=== PATIENT | female | born 1970 | race Caucasian/White ===

== ENCOUNTER 2016-11-13 18:07 | Emergency (ER) | payer SELFPAY ==
--- NOTE | ~2016-11-13 | CR142 ---
[facility] A Service of [facility] RADIOLOGY TEXT RESULTS PATIENT: CLINTON JENKINS LOCATION: CFT[facility] : 66 UNIT #: [id number] AGE: [address]: Richadr Appiah SEX: F ORDER DR: [id number] [place], [place] [address] [id number] MR#: [id number] #: [id number] NAME: CLINTON JENKINS : 1970 SEX: F STUDY DATE/TIME: 11/13/2016 18:50 UNIT: [facility] ROOM: STUDY DESCRIPTION: CR Hand Min 3 Views Rt Attending Physician: Richard Appiah P.A.-C. Ordering Physician: Max Harrison M.D. Primary Care Physician: No Primary Care Physician MEDICAL IMAGING REPORT This report is preliminary unless electronic signature is present EXAM Right hand, 3 views. HISTORY Right hand pain today after she punched the refrigerator. COMMENTS Three views of the right hand are reviewed. There is no previous. There is a comminuted fracture of the distal fifth metacarpal involving the shaft to the metaphysis with some impaction and apex dorsal angulation. There is soft tissue swelling and I cannot exclude an open fracture. There is no clear intraarticular extension of the fracture lines and no dislocation is appreciated. IMPRESSION 1. There is a comminuted fracture of the distal right fifth metacarpal involving the shaft and metaphysis region. There is apex dorsal angulation and impaction and configuration raises possibility of an open fracture. Please correlate with physical exam findings. No obvious intraarticular extension of fracture line and no dislocation appreciated. Dictated by... Aneta Bello M.D. THIS IS AN ELECTRONICALLY VERIFIED REPORT Aneta Bello M.D. at 11/14/2016 2:26 PM DESTINY/olive TD: 11/14/2016 06:52 JOB #: [id number] [facility] A Service of [facility] RADIOLOGY TEXT RESULTS PATIENT: CLINTON JENKINS LOCATION: [facility] : 66 UNIT #: [id number] AGE: [address]: Richard Appiah PAC SEX: F ORDER DR: MEDICAL IMAGING REPORT Page 1 of 1 COPY
[~2016-11-13 18:07] MED LIST: LORTAB 5/500 TA1 TA1 PO
== END 2016-11-13 20:37 | disposition short-term general hospital (02) ==
LOC: CED 18:07 → CFTX 18:07 → CED 20:24 → CFTX 20:37
DX: S62.306B Unspecified fracture of fifth metacarpal bone, right hand, initial encounter for open fracture (principal); F17.210 Nicotine dependence, cigarettes, uncomplicated; W22.8XXA Striking against or struck by other objects, initial encounter; Z23 Encounter for immunization
CPT/HCPCS: 73130; 90471; 90715; 99283